=== PATIENT | female | born 1955 | race Caucasian/White ===

== ENCOUNTER → 2019-07-25 | Outpatient (CLI) | payer OTHER ==
--- NOTE | 2019-07-26 16:48 | RADIOLOGY REPORT (SQ) ---
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 RADIONUCLIDE AND DOSE: 11.49 mCi F18 FDG The route of agent administration: Intravenous FASTING BLOOD SUGAR: 85 mg/dl CONTRAST TYPE AND DOSE: No CT contrast given. TECHNIQUE: Blood glucose level was verified. Above dose of FDG was injected intravenously. 2-D seg mented attenuation correction images were obtained from the base of the skull to the midthighs. Nonc ontrast CT images were obtained for attenuation correction and fusion with emission images. CT image s were performed without oral or intravenous contrast and are not sensitive for parenchymal lesions. A series of overlapping emission PET images were obtained. Images reviewed and manipulated at [facility] work station by the radiologist. Images stored on PACS. LIMITATIONS: None. FINDINGS: HEAD AND NECK: There is a conglomerate of enlarged IIa and IIb lymph nodes on the right si de that measure up to 15 mm in short axis diameter ; the maximum recorded SUV of the nodes equals 11. 2. There are also prominent bilateral level II and III lymph nodes that demonstrate varying degrees of mild FDG uptake with maximum SUVs that range up to 3.3. CHEST: There are enlarged and hypermetabolic bilateral axillary lymph nodes ; for reference, the clus ter of lymph nodes in the left axilla that measure up to 17 mm short axis diameter (image 79 of serie s 3) have a maximum SUV of 11.4. ABDOMEN AND PELVIS: The liver demonstrates heterogeneous non focal FDG uptake with an average SUV of 2. There are clustered enlarged left periaortic, pre-caval, bilateral common and external iliac, lef t obturator, and bilateral deep and superficial inguinal lymph nodes that demonstrate varying degrees of FDG uptake ; for reference, the conglomerate of nodules near the aortic bifurcation on image 162 of series 3 has a maximum SUV of 12.2. The hazy appearance of the mesenteric has been described in the setting of lymphoma. The 7 mm short axis mesenteric lymph node on image 165 of series 3 is FDG avid with a maximum SUV of 3.6. PROXIMAL LOWER EXTREMITIES: No areas of abnormal metabolic activity in the soft tissues of the lower extremities. BONES: No areas of abnormal metabolic activity in the imaged axial and appendicular skeleton. ADDITIONAL CT FINDINGS: Mild atherosclerotic calcification of the coronary arteries. There is no car diomegaly or pericardial effusion. The morphology of the liver is non cirrhotic. The gallbladder is surgically absent. The spleen is normal in size. There there is an accessory splenic no inferior t o the spleen. There is no abnormality of the adrenal glands or pancreas. There is no hydronephrosis , nephrolithiasis, hydroureter or ureterolithiasis. There is colonic diverticulosis without divertic ulitis. The uterus is surgically absent. The urinary bladder is distended and normal in appearance. There is a fat containing infraumbilical ventral hernia. OTHER: No other findings. IMPRESSION: Findings as above consistent with lymphoma with enlarged and hypermetabolic cervical, ax illary, mesenteric, retroperitoneal and inguinal adenopathy as detailed above. TECHNICAL DOCUMENTATION: JOB ID: [id number] [employer]- All Rights Reserved Reading location - IP/workstation name: [email or web address]
== END ==
LOC: RAD 11:54
PROVIDERS: ATTEND Internal Medicine Hematology & Oncology
DX: C82.16 Follicular lymphoma grade II, intrapelvic lymph nodes (principal)
CPT/HCPCS: 78815; A9552

== ENCOUNTER → 2020-01-18 | Outpatient (CLI) | payer OTHER ==
[2020-01-18 09:50] LABS: ABSOLUTE BASOPHILS # (AUTO) 0.1 10^3/uL (0.0-0.2); ABSOLUTE EOSINOPHILS # (AUTO) 0.1 10^3/uL (0.0-0.6); ABSOLUTE LYMPHOCYTES (AUTO) 1.6 10^3/uL (0.5-4.7); ABSOLUTE MONOCYTES (AUTO) 0.5 10^3/uL (0.1-1.4); ABSOLUTE NEUT (AUTO) 3.3 10^3/uL (1.7-8.2); BASOPHILS % (AUTO) 2.2 % (0-2); HEMATOCRIT 40.5 % (36.0-47.0); HEMOGLOBIN 13.8 g/dL (12.0-15.5); LYMPHOCYTES % (AUTO) 28.6 % (13-45); MEAN CORPUSCULAR HEMOGLOBIN 28.7 pg (27.0-33.4); MEAN CORPUSCULAR HGB CONC 34.1 g/dL (32.0-36.0); MEAN CORPUSCULAR VOLUME 84 fl (80-97); MONOCYTES % (AUTO) 8.5 % (3-13); PLATELET COUNT 271 10^3/uL (150-450); RED BLOOD COUNT 4.81 10^6/uL (3.72-5.28); RED CELL DISTRIBUTION WIDTH 14.3 % (11.5-14.0); SEGMENTED NEUTROPHILS % (AUTO) 58.7 % (42-78); TOTAL CELLS COUNTED % (AUTO) 100 %; WHITE BLOOD COUNT 5.5 10^3/uL (4.0-10.5)
[2020-01-18 10:01] LABS: ALBUMIN 4.5 g/dL (3.5-5.0); ALKALINE PHOSPHATASE 69 U/L (38-126); ANION GAP 7 (5-19); ASPARTATE AMINO TRANSFERASE 24 U/L (14-36); BILIRUBIN,DIRECT 0.1 mg/dL (0.0-0.4); BILIRUBIN,TOTAL 0.7 mg/dL (0.2-1.3); BLOOD UREA NITROGEN 15 mg/dL (7-20); CALCIUM 9.6 mg/dL (8.4-10.2); CARBON DIOXIDE 28 mmol/L (22-30); CHLORIDE 103 mmol/L (98-107); GLUCOSE 105 mg/dL (75-110); POTASSIUM 4.7 mmol/L (3.6-5.0); TOTAL PROTEIN 6.9 g/dL (6.3-8.2)
== END ==
LOC: OD 08:42
PROVIDERS: ATTEND Internal Medicine Hematology & Oncology
DX: C82.16 Follicular lymphoma grade II, intrapelvic lymph nodes (principal)
CPT/HCPCS: 36415; 80053; 83615; 85025

== ENCOUNTER → 2020-01-19 | Outpatient (CLI) | payer OTHER ==
--- NOTE | 2020-01-19 10:48 | RADIOLOGY REPORT (SQ) ---
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 Images reviewed with lung, soft tissue and bone windows. Reconstructed coronal a nd sagittal MPR images reviewed. All images stored on PACS. CT scan of the abdomen and pelvis performed with intravenous and with oral contrastusing helical scan ping technique with dynamic intravenous contrast injection. Images reviewed with lung, soft tissue a nd bone windows. Reconstructed coronal and sagittal MPR images reviewed. Delayed images for evaluat ion of the urinary system also acquired and evaluated. All images stored on PACS. All CT scanners at this facility use dose modulation, iterative reconstruction, and/or weight based d osing when appropriate to reduce radiation dose to as low as reasonably achievable (ALARA). [facility]: Dose Right [facility]: CareDose [facility]: Dose Right [facility]: Teradose 4D [facility]: Smart [employer] RADIATION DOSE: CT Rad equipment meets quality standard of care and radiation dose reduction techniq ues were employed. CTDIvol: 12.0 - 17.3 mGy. DLP: 2238 mGy-cm. . LIMITATIONS: None. FINDINGS: CHEST: LUNGS AND PLEURA: No opacities, nodules, masses. No pneumothorax. No effusions. HILAR AND MEDIASTINAL STRUCTURES: No identified masses or abnormal nodes. HEART AND VASCULAR STRUCTURES: No aneurysm or dissection. No central pulmonary emboli. No pericardi al effusion. HARDWARE: None. THYROID AND OTHER SOFT TISSUES: Enlarged right axillary lymph node 2 x 1.9 cm axial image 20 (was 2 x 1.5 cm on 07/25/2019). Enlarged left axillary lymph node 2.5 x 1.9 cm axial image 19 (was 2.3 x 1.7 cm on 07/25/2019). BONES: No significant finding. OTHER: No other significant finding. ABDOMEN AND PELVIS: LIVER: Normal size. No masses. No dilated ducts. SPLEEN: Normal size. No focal lesions. PANCREAS: No masses. No significant calcifications. No adjacent inflammation or peripancreatic fluid collections. Pancreatic duct not dilated. GALLBLADDER: Surgically absent ADRENAL GLANDS: No significant masses or asymmetry. RIGHT KIDNEY AND URETER: No solid masses. No significant calcification. No hydronephrosis or hydroure ter. LEFT KIDNEY AND URETER: No solid masses. No significant calcification. No hydronephrosis or hydrouret er. AORTA AND VESSELS: No aneurysm. No dissection. Renal arteries, SMA, celiac without stenosis. RETROPERITONEUM: There is retroperitoneal and pelvic adenopathy as follows: Left para aortic lymph node 3.2 x 2.4 cm axial image 30 (was 2.7 x 1.8 cm 08/04/2019). Mesenteric lymph node 1.6 x 1.6 cm axial image 46 (was 1.3 x 0.7 cm on 07/25/2019). Left para aortic lymph node at the level of the MARLON, 3.4 x 3.6 cm (was 2.6 x 2.4 cm). Right external iliac lymph node 2 x 1 cm axial image 73 unchanged Left pelvic sidewall 3 x 1.5 cm lymph node axial image 70, unchanged BOWEL AND PERITONEAL CAVITY: Patient drank oral contrast No masses or inflammatory changes. No free fluid or peritoneal masses. Colonic diverticulosis without CT signs of acute diverticulitis APPENDIX: Normal. ABDOMINAL WALL: Midline suprapubic fat containing ventral hernia axial image 74 PELVIS: No mass or free fluid. Normal bladder. Post hysterectomy BONES: No significant or acute findings. OTHER: No other significant finding. IMPRESSION: Progressive adenopathy as above TECHNICAL DOCUMENTATION: JOB ID: [id number] Quality ID # [id number]: Final reports with documentation of one or more dose reduction techniques (e.g., Au tomated exposure control, adjustment of the mA and/or kV according to patient size, use of iterative reconstruction technique) 2010 [employer]- All Rights Reserved Reading location - IP/workstation name: [email or web address]
== END ==
LOC: RAD 08:56
PROVIDERS: ATTEND Internal Medicine Hematology & Oncology
DX: C82.16 Follicular lymphoma grade II, intrapelvic lymph nodes (principal); K57.30 Diverticulosis of large intestine without perforation or abscess without bleeding
CPT/HCPCS: 71260; 74177

== ENCOUNTER → 2020-07-25 | Outpatient (CLI) | payer MEDICARE, OTHER ==
--- NOTE | 2020-07-25 12:39 | RADIOLOGY REPORT (SQ) ---
EXAM DESCRIPTION: VENOUS UNILATERAL UPPER IMAGES COMPLETED DATE/TIME: 07/25/2020 11:22 am REASON FOR STUDY: RUE SWELLING R22.1 LOCALIZED SWELLING, MASS AND LUMP, NECK R22.31 LOCALIZED SWEL LING, MASS AND LUMP, RIGHT UPPER LIMB COMPARISON: None. TECHNIQUE: Dynamic and static milian scale and color images acquired of the right arm venous system. S elected spectral images acquired with additional compression and augmentation maneuvers. The contrala teral subclavian vein and internal jugular vein were also imaged. Images stored on PACS. LIMITATIONS: None. FINDINGS: INTERNAL JUGULAR VEIN: Normal phasicity, compression, augmentation. No visualized echogeni c material on milian scale. No defects on color images. Comparison opposite side normal. SUBCLAVIAN VEIN: Normal compression, augmentation. No visualized echogenic material on milian scale. No defects on color images. AXILLARY VEIN: Normal compression, augmentation. No visualized echogenic material on milian scale. No d efects on color images. BRACHIAL VEIN: Normal compression, augmentation. No visualized echogenic material on milian scale. No d efects on color images. BASILIC VEIN: Normal compression, augmentation. No visualized echogenic material on milian scale. No de fects on color images. CEPHALIC VEIN: Normal compression, augmentation. No visualized echogenic material on milian scale. No d efects on color images. OTHER: No other significant finding. CONTRALATERAL SUBCLAVIAN VEIN AND INTERNAL JUGULAR VEIN: Normal phasicity, compression and augmentation. No visualized echogenic material on milian scale. No de fects on color images. IMPRESSION: NO EVIDENCE DVT OR SVT IN THE RIGHT ARM. TECHNICAL DOCUMENTATION: JOB ID: [id number] 2010 [employer]- All Rights Reserved Reading location - IP/workstation name: [email or web address]
== END ==
LOC: SP 08:47
PROVIDERS: ATTEND Internal Medicine Hematology & Oncology
DX: C82.16 Follicular lymphoma grade II, intrapelvic lymph nodes (principal); R22.1 Localized swelling, mass and lump, neck
CPT/HCPCS: 93971